=== PATIENT | male | born 1980 | race Caucasian/White ===

== ENCOUNTER → 2018-08-04 13:10 | Outpatient (CLI) | payer OTHER | END | disposition home or self-care (01) | LOC: D.RAD 13:10 | PROVIDERS: ATTEND Pain Medicine Interventional Pain Medicine | DX: M54.17 Radiculopathy, lumbosacral region (principal) ==

== ENCOUNTER → 2018-08-18 11:09 | Outpatient (CLI) | payer OTHER | END | disposition home or self-care (01) | LOC: D.HCCARDIO 11:09 | PROVIDERS: ATTEND Internal Medicine Cardiovascular Disease | DX: I25.10 Atherosclerotic heart disease of native coronary artery without angina pectoris (principal) ==

== ENCOUNTER → 2019-11-01 09:50 | Outpatient (CLI) | payer OTHER | END | disposition home or self-care (01) | LOC: D.HCCECHO 09:50 | PROVIDERS: ATTEND Internal Medicine Cardiovascular Disease | DX: I25.10 Atherosclerotic heart disease of native coronary artery without angina pectoris (principal) ==

== ENCOUNTER 2019-11-13 06:46 | Day surgery (SDC) | payer OTHER ==
[~2019-11-13] VITALS: Ht 175.3 cm; Wt 68.3 kg
--- NOTE | ~2019-11-13 | HEMODYNAMI ---
PATIENT:PATRIA ULRICH MEDICAL RECORD: [id number] : 84 LOCATION:[facility] ADMISSION DATE: 11/13/19 Generatedon:11/13/20199:31 Patient name: PATRIA ULRICH Patient #: [id number] : 1980 Date of study: 11/13/2019 Page: Of Hemodynamic Procedure Report Patient Data Patient Demographics Procedure consent was obtained First Name: PATRIA Gender: Male Last Name: MOJGAN : 1980 Patient #: [id number] Age: 39 year(s) Race: SSN: [id number] Additional ID: [id number] Contact details Address: [address] [place] [address] State: [place] City: [place] Zip code: [address] Past Medical History Allergies Allergen Reaction Date Comments Reported Other allergy 11/13/2019 Azithromycin Admission Admission Data Admission Date: 11/13/2019 Admission Time: 6:46 Arrival Date: 11/13/2019 Arrival Time: 0:00 Admit Source: Other Insurance Payor: Private health insurance [facility] #: [id number] Height (in.): 68.9 BSA: 1.83 (m2) Height (cm.): 175 BMI: 22.2 (kg/m2) Weight (lbs.): 149.92 Weight (kg.): 68 Lab Results Lab Result Date: 11/13/2019 Lab Result Time: 7:45 Biochemistry Name Units Result Min Max BUN mg/dl 11 --(-*--)-- 7 18 Creatinine mg/dl 1 --(--*-)-- 0.6 1.3 eGFR ml/min 90 --(*---)-- 90 120 NONAFRICAN CBC Name Units Result Min Max Hematocrit % 44.2 --(*---)-- 42 54 Hemoglobin g/dl 14.8 --(-*--)-- 13.5 17.5 Procedure Procedure Types Cath Procedure Diagnostic Procedure [facility] w/Coronaries Aortic Root Angiography Sedation Charges Moderate Sedation up to 45 minutes PCI Procedure Coronary Stent Coronary Stent Initial Coronary Stent Additional Hemochron ACT Test Procedure Description Procedure Date Procedure Date: 11/13/2019 Procedure Start Time: 8:42 Procedure End Time: 9:27 Procedure Staff Name Function Otis Ohara MD Performing Physician Luke Packer RT Monitor Hina Guillaume RT Scrub Ascencion Sainz RN Nurse Procedure Data Cath Procedure Fluoroscopy Diagnostic fluoroscopy Total fluoroscopy Time: 9.5 time: 9.5 min min Diagnostic fluoroscopy Total fluoroscopy dose: dose: 1378 mGy 1378 mGy Contrast Material Contrast Material Type Amount (ml) Isovue 300 154 Entry Location Entry Primary Successful Side Size Upsize Upsize Entry Closure Succes sful Closure Location (Fr) 1 (Fr) 2 (Fr) Remarks Device Remarks Femoral Right 5 Fr 6 Fr Exoseal artery Short Estimated blood loss: 10 ml Diagnostic catheters Device Type Used For End Catheter Placement MULTIPACK JL 4.0 5Fr Procedure catheter MULTIPACK 3DRC 5Fr Procedure catheter MULTIPACK Pigtail 5 Fr Procedure catheter Procedure Complications No complications Procedure Medications Medication Administration Route Dosage Oxygen etCO2 Nasal cannula 2 l/min Lidocaine 2% added to field 20 Heparin Flush Bag added to field 2 bags (1000units/500ml NS) 0.9% NaCl I.V. 100 ml/hr Versed I.V. 2 mg Fentanyl I.V. 100 mcg Versed I.V. 2 mg Fentanyl I.V. 100 mcg Heparin Bolus I.V. 6500 units Nitroglycerin IC/IA I.C. 50 mcg Versed I.V. 1 mg Versed I.V. 1 mg Plavix P.O. 75 mg Hemodynamics Rest BSA: 1.83 (m2) HGB: 14.8 (g/dl) O2 Consumption: Estimated: 221.88 (ml/min) O2 Co nsumption indexed: Estimated:121.25 (ml/min/m) Heart Rate: 65 (bpm) Pressure Samples Time Site Value (mmHg) Purpose Heart Use Rate(bpm) 8:50 LV 86/-4,8 Snapshot 63 Gradients Valve Time Site Site Mean SEP/DFP Peak To Heart Use 1 2 (mmHg) (sec/min) Peak Rate (mmHg) (bpm) Aortic 8:52 LV AO 63 Snapshots Pre Cath Intra NCS Post Cath Vital Signs Time Heart Resp SPO2 etCO2 NIBP (mmHg) Rhythm Pain Sedation Rate (ipm) (%) (mmHg) Status Level (bpm) 8:23:27 66 14 100 0 139/86(114) NSR 0 (11) 10(A) , No pain 8:27:43 71 19 100 33.6 115/79(94) NSR 0 (11) 10(A) , No pain 8:31:53 67 21 100 34.3 122/69(91) NSR 0 (11) 10(A) , No pain 8:36:05 64 20 98 37.3 109/67(81) NSR 0 (11) 10(A) , No pain 8:40:13 58 15 95 39.6 102/64(77) NSR 0 (11) 10(A) , No pain 8:44:21 59 15 95 41.9 96/56(71) NSR 0 (11) 10(A) , No pain 8:48:29 61 15 94 42.6 93/50(72) NSR 0 (11) 10(A) , No pain 8:52:32 62 16 95 41.8 92/54(67) NSR 0 (11) 10(A) , No pain 8:56:38 64 17 93 41.8 91/48(68) NSR 0 (11) 10(A) , No pain 9:00:42 63 17 93 41.1 87/49(65) NSR 0 (11) 10(A) , No pain 9:04:48 69 18 93 41.1 86/44(65) NSR 0 (11) 10(A) , No pain 9:08:49 68 19 94 39.6 87/49(63) NSR 0 (11) 10(A) , No pain 9:13:38 78 11 100 35.8 110/66(89) NSR 0 (11) 10(A) , No pain 9:17:44 72 12 100 36.6 108/66(91) NSR 0 (11) 10(A) , No pain 9:21:50 75 16 100 40.4 104/65(85) NSR 0 (11) 10(A) , No pain 9:25:53 64 18 99 32.1 108/61(91) NSR 0 (11) 10(A) , No pain Medications Time Medication Route Dose Verified Delivered Reason Notes Effectiveness by by 8:26:46 Oxygen etCO2 2 Otis Buffie used for Nasal l/min Florentino Sainz RN procedure cannula 8:26:53 Lidocaine 2% added 20ml Otis Otis for local to vial Florentino Ohara MD anesthetic field 8:27:01 Heparin Flush added 2 Otis Otis for local Bag to bags Florentino Ohara MD anesthetic (1000units/500ml field NS) 8:27:09 0.9% NaCl I.V. 100 Otis Buffie Per physician ml/hr Florentino Sainz RN 8:35:54 Versed I.V. 2 mg Otis Buffie for sedation Florentino Sainz RN 8:36:04 Fentanyl I.V. 100 Otis Buffie for sedation mcg Florentino Sainz RN 8:40:31 Versed I.V. 2 mg Otis Buffie for sedation Florentino Sainz RN 8:40:34 Fentanyl I.V. 100 Otis Buffie for sedation mcg Florentino Sainz RN 8:50:24 Versed I.V. 1 mg Otis Otis for sedation Florentino Ohara MD 9:00:04 Heparin Bolus I.V. 6500 Otis Buffie for verifi ed units Florentino Sainz RN anticoagulation with dr ohara 9:13:47 Nitroglycerin I.C. 50 Otis Otis for IC/IA mcg Florentino Ohara MD vasodilation 9:20:25 Versed I.V. 1 mg Otis Otis for sedation Florentino Ohara MD 9:27:56 Plavix P.O. 75 mg Otis Buffie for Florentino Sainz RN antiplatelet therapy Procedure Log Time Note 7:48:40 Informed consent obtained and on chart 7:49:58 Admit Source: Other 7:50:00 Arrival Date: 11/13/2019 12:00:00 AM 8:00:11 Ascencion Sainz RN sent for patient. Start room use. 8:12:13 Patient Weight : 149.92 lbs 8:12:23 Patient Height : 68.9 inches 8:12:36 Insurance Payor : Private health insurance 8:16:50 ACC Patient presents with Stable Angina CCS Anginal Class 2--Slight limitation of ordinary activity. 8:16:53 Procedure Status Elective Heart Cath (OP). 8:17:16 Time tracking: Regular hours (M-F 7:00 - 5:00) 8:17:19 Plan of Care:Hemodynamics will remain stable., Cardiac rhythm will remain stable., Comfort level will be maintained., Respiratory function will remain adequate., Patient/ family verbilizes understanding of procedure., Procedure tolerated without complication., Recovers from procedure without complications.. 8:17:22 Patient received from Pre/Post Procedure Room to CCL 1 Alert and oriented. Tansferred to table in Supine position. 8:17:23 Warm blankets applied, and lola hugger turned on for patient comfort. 8:17:23 Correct patient and procedure confirmed by team. 8:17:31 H&P Date Dictated: 10/16/2019 Within 30 days and on chart., H&P Addendum completed by physician on day of procedure. (MUST COMPLETE FOR ALL OUTPATIENTS). 8:17:32 Pre-procedure instructions explained to patient. 8:17:33 Pre-op teaching completed and patient verbalized understanding. 8:17:34 Family in waiting room. 8:17:35 Patient NPO since Midnight. 8:17:50 Patient allergic to Other allergyAzithromycin 8:17:56 Is the patient allergic to Iodine/contrast media? No. 8:22:14 ECG and BP/O2 sat monitors applied to patient. 8:22:15 Vital chart was started 8:22:16 Baseline sample Acquired. 8:22:18 Rhythm: sinus rhythm 8:22:19 Full Disclosure recording started 8:22:22 Is patient on blood thinner?Yes 8:22:24 ACC The patient was administered the following blood thiners within the last 24 hours: ACCAspirin, ACCPlavix 8:22:27 Patient diabetic? No. 8:22:56 Previous problem with sedation/anesthesia? No ? 8:22:57 Snore? No 8:22:58 Sleep apnea? No 8:22:59 Deviated septum? No 8:23:00 Opens mouth fully? Yes 8:23:00 Sticks out tongue? Yes 8:23:03 Airway obstruction? No ? 8:23:15 Dentures? Yes in tight 8:23:20 Pre procedure: right dorsailis pedis pulse 2+ Normal; easily identifiable; not easily obliterated 8:23:22 Patient pain scale 0/10 ?. 8:23:29 IV patent on arrival in right forearm with 0.9% NaCl at [facility]. 8::56 Lab Result : Hematocrit 44.2 % 8::56 Lab Result : Hemoglobin 14.8 g/dl 8::23 Lab results completed and on chart. 8:26:46 Oxygen 2 l/min etCO2 Nasal cannula was administered by Ascencion Sainz RN; used for procedure; Verbal order read back and verified. 8::53 Lidocaine 2% 20ml vial added to field was administered by Otis Ohara MD; for local anesthetic; Verbal order read back and verified. 8:27:01 Heparin Flush Bag (1000units/500ml NS) 2 bags added to field was administered by Otis Ohara MD; for local anesthetic; Verbal order read back and verified. 8:27:09 0.9% NaCl 100 ml/hr I.V. was administered by Ascencion Sainz RN; Per physician; Verbal order read back and verified. 8:31:08 Stress Test: yes; abnormal fixed inferior and lateral 8:31:50 Right groin area was prepped with chlora-prep and draped in sterile fashion 8:31:51 Alarms reviewed by R. N. 8:31:52 Sharps counted by scrub and verified by R.N. 8:31:54 Use device set Femoral Dx 8:31:55 ACIST Syringe (01208) opened to sterile field. 8:31:55 Bag Decanter (2002) opened to sterile field. 8:31:55 Medline Cath Pack ([id number]) opened to sterile field. 8:31:57 ACIST Hand Control (00181) opened to sterile field. 8:31:57 ACIST Manifold (22180) opened to sterile field. 8:31:58 DIAGNOSTIC Multipack 5Fr catheter set (JD3579) opened to sterile field. 8:31:58 Tegaderm 4 x 4 (1626W) opened to sterile field. 8:32:01 SHEATH 5FR [place] (FRU337) opened to sterile field. 8:32:01 ELLIOTTALD Guide Wire (223-258) opened to sterile field. 8:35:35 Physician arrived 8:35:35 --------ALL STOP TIME OUT------ 8:35:35 Final Timeout: patient, procedure, and site verified with staff and physician. All members of the team are in agreement. 8:35:37 Right groin site verified by team. 8:35:40 Fire Safety Assessment: A--An alcohol-based skin anteseptic being used preoperatively., C--Open oxygen or nitrous oxide is being used., D--An ESU, laser, or fiber-optic light is being used. 8:35:44 Physical assessment completed. ASA score P 2 - A patient with mild systemic disease as per Otis Ohara MD. 8:35:47 1) 90+ Normal kidney functon but urine findings or structural abnormalities or genetic trait point to kidney disease. 8:35:49 Maximum allowable contrast dose (3.7 X eGFR X 0.75)250 ml. 8:35:53 Sedation plan: IV Moderate Sedation Medication:Versed, Fentanyl 8:35:54 Versed 2 mg I.V. was administered by Ascencion Sainz RN; for sedation; Verbal order read back and verified. 8:36:04 Fentanyl 100 mcg I.V. was administered by Ascencion Sainz RN; for sedation; Verbal order read back and verified. 8:40:31 Versed 2 mg I.V. was administered by Ascencion Sainz RN; for sedation; Verbal order read back and verified. 8:40:34 Fentanyl 100 mcg I.V. was administered by Ascencion Sainz RN; for sedation; Verbal order read back and verified. 8:42:24 Procedure started. 8:42:27 Local anesthetic to right femoral artery with Lidocaine 2% by Otis Ohara MD.INITIAL ACCESS ONLY 8:42:33 A 5 Fr sheath was inserted into the Right Femoral artery 8:43:23 Zero performed for pressure channel P1 8:44:39 A MULTIPACK JL 4.0 5Fr catheter was advanced over the wire and used for Procedure. 8:45:13 LCA angiography performed. 8:46:57 Catheter exchanged over wire. 8:48:28 A MULTIPACK 3DRC 5Fr catheter was advanced over the wire and used for Procedure. 8:49:07 RCA angiography performed. 8:49:15 Catheter exchanged over wire. 8:49:18 A MULTIPACK Pigtail 5 Fr catheter was advanced over the wire and used for Procedure. 8:50:24 Versed 1 mg I.V. was administered by Otis Ohara MD; for sedation; Verbal order read back and verified. 8:50:54 LV gram done using WILSON 8:50:57 Injector settings: Ml/sec: 10, Volume: 20, 8:50:58 LV hemodynamics recorded. 8:53:08 Aortic Root visualized 8:53:19 EF : 40 % 8:53:58 Catheter removed. 8:56:40 SHEATH 6FR [place] (ERR284) opened to sterile field. 8:56:40 INFLATOR Merit BasixCompak (PC7063) opened to sterile field. 8:56:44 TUBING High Pressure Extension Tubing (Florentino) ([id number]) opened to sterile field. 8:57:53 BMW 300cm [place] 2 J wire ([id number]) opened to sterile field. 8:57:59 GUIDE 6FR JR 4.0 catheter (KR5JF69) opened to sterile field. 8:58:17 Sheath upsized to a 6 Fr Short. 8:58:26 ACC Pre-intervention ANYELI Flow is 3. 8:58:41 Pre PCI Site: [place] PDA has 80% stenosis. 8:58:51 6 Fr JR 4 guide catheter was inserted over the wire 8:58:55 BMW wire advanced. 9:00:04 Heparin Bolus 6500 units I.V. was administered by Ascencion Sainz RN; for anticoagulation; verified with dr ohara Verbal order read back and verified. 9:00:33 Wire advanced across lesion. 9:07:25 Place stent Inflation Number: 1 A MARELY OTW 2.25 x 26 stent ([id number]) was prepped and advanced across the R PDA 80. The stent was deployed at 13 SACHA for 0:10 (min:sec) 0. 9:09:20 ACC Post-intervention NAYELI Flow is 3. 9:09:27 Post PCI Site: [place] PDA has 0% stenosis. 9:10:06 Inflation number: 1 The stent balloon was then re-inflated across the Dist RCA to 12 SACHA for 0:10 (min:sec) . 9:13:47 Nitroglycerin IC/IA 50 mcg I.C. was administered by Otis Ohara MD; for vasodilation; Verbal order read back and verified. 9:13:51 Stent catheter was removed intact over wire. 9:18:24 Place stent Inflation Number: 2 A MARELY OTW 2.25 x 15 stent ([id number]) was prepped and advanced across the Dist RCA . The stent was deployed at 11 SACHA for 0:10 (min:sec) . 9::53 Stent catheter was removed intact over wire. 9::55 Wire removed. 9::55 Guide catheter removed. 9:20:12 Post PCI Site: [place] dRCA has 0% stenosis. 9:20:15 ACC Post-intervention NAYELI Flow is 3. 9:20:21 EXOSEAL 6Fr (EX600) opened to sterile field. 9:20:25 Versed 1 mg I.V. was administered by Otis Ohara MD; for sedation; Verbal order read back and verified. 9:20:28 Sheath removed intact; hemostasis achieved with Exoseal to the Right Femoral artery. 9:20:29 Procedure ended.(Physican Out) 9::24 Fluoroscopy time 09.50 minutes. 9::33 Flurop Dose total: 1378 9::33 Fluoroscopy dose: 1378 mGy 9::42 Dose Area Product 78000 mGy/cm. 9::50 Contrast amount:Isovue 300 154ml. 9::53 Maximum allowable dose exceeded? No. 9::53 Sharps counted by scrub and verified by R.N. 9:24:49 Lab Result : BUN 11 mg/dl 9::49 Lab Result : Creatinine 1 mg/dl 9:24:49 Lab Result : eGFR NONAFRICAN 90 ml/min 9:25:25 Insertion/operative site no bleeding no hematoma. 9:25:27 Post-op/insertion site Right Femoral artery dressed using a 4 x 4 and Tegaderm. 9:25:30 Post right femoral artery:stable, soft, clean and dry 9:25:31 Post Procedure Pulses reassessed and unchanged 9::33 Post-procedure physical assessment completed. ASA score P 2 - A patient with mild systemic disease as per Otis Ohara MD. 9:25:35 Post procedure rhythm: unchanged. 9:25:37 Estimated blood loss: 10 ml 9:25:38 Post procedure instruction explained to patient.Patient verbalizes understanding. 9::39 Patient needs reinforcement of post procedure teaching. 9::28 Procedure type changed to Cath procedure, Diagnostic procedure, LHC, [facility] w/Coronaries, Aortic Root Angiography, Sedation Charges, Moderate Sedation up to 45 minutes, PCI procedure, Coronary Stent, Coronary Stent Initial, Coronary Stent Additional, Hemochron ACT Test 9::47 Procedure and supply charges have been captured, reviewed, submitted and are correct. 9:26:49 Procedure Complication : No complications 9::51 Vital chart was stopped 9::54 [facility] Findings: MVD- PCI performed (see procedure note) 9::56 Operative report dictated upon procedure completion. 9::56 See physician's report for complete and final results. 9::30 Report given to Pre/Post Procedure Room. 9::33 Patient transfered to Pre/Post Procedure Room with Stretcher. 9::34 Procedure ended. 9::34 Full Disclosure recording stopped 9::43 ACC-PCI Only Patient was given prescriptions, or instructed by Otis Ohara MD to start/continue the following medications upon discharge: Aspirin, Plavix 9::56 Plavix 75 mg P.O. was administered by Ascencion Sainz RN; for antiplatelet therapy; Verbal order read back and verified. 9:28:10 ACT drawn and resulted at 359 seconds. (normal therapeutic range 180-240 seconds). 9:29:29 End room use (Document Last) 9:29:41 End room use (Document Last) 9:30:00 Luke Packer RT(R) was relieved by Ascencion Sainz RN as monitoring person 9:30:22 Ascencion Sainz RN was relieved by Luke Packer RT(R) as monitoring person 9:30:22 End room use (Document Last) Intervention Summary Intervention Notes Time ActionType Lesion and Equipment Action# Pressure Duration Attributes Used 9:07:25 Place stent R PDA MARELY OTW 2.25 1 13 00:10 x 26 stent ([id number]) 9:10:06 Reinflate Dist RCA MARELY OTW 2.25 1 12 00:10 stent x 26 stent balloon ([id number]) 9:18:24 Place stent Dist RCA MARELY OTW 2.25 2 11 00:10 x 15 stent ([id number]) Device Usage Item Name Manufacture Quantity Catalog Hospital Part Current Minim al Lot# / Number Charge Number Stock Stock Serial# Code ACIST Syringe Acist 1 08825 125855 576529 277170 20 (91283) Medical Systems Inc Bag Decanter Microtek 1 907370 99162 358205 5 () Medical Inc. Medline Cath Medline 1 [id number] 540272 43961 605614 5 Pack ([id number]) ACIST Hand Acist 1 24353 259014 639325 996070 5 Control Medical (48966) Systems Inc ACIST Acist 1 74473 038467 750199 838516 5 Manifold Medical (52869) Systems Inc DIAGNOSTIC Cardinal 1 US0225 689518 26648 933278 30 Multipack 5Fr Health catheter set (OJ6959) Tegaderm 4 x 3M 1 1626W 313384 829790 665401 5 4 (1626W) SHEATH 5FR Terumo 1 HPU450 056990 175218 652643 5 [place] (HIX327) EMERALD Guide Cardinal 1 502-455 726794 654051 762295 5 Wire Health (502-455) MULTIPACK JL Cardinal 1 844576 5 4.0 5Fr Health catheter MULTIPACK Cardinal 1 975205 5 3DRC 5Fr Health catheter MULTIPACK Cardinal 1 687908 5 Pigtail 5 Fr Health catheter SHEATH 6FR Terumo 1 SMV739 284464 719401 380800 40 [place] (JOW654) INFLATOR Merit 1 LZ6448 402147 369346 866878 15 Merit Medical BasixCompak (TF4387) TUBING High Merit 1 [id number] 641620 85667 632440 10 Pressure Medical Extension Tubing (Ohara) (FU0913Q) GUIDE 6FR JR Medtronic 1 FY4ZN96 785762 10591 964134 1 4.0 catheter (HR1WV41) BMW 300cm Gonzalez 1 [id number] 126442 832914 341063 5 [place] 2 J Vascular wire (9682257G) MARELY OTW 2.25 Medtronic 1 [id number] 685769 37436 929542 5 [id number] x 26 stent ([id number]) MARELY OTW 2.25 Medtronic 1 [id number] 582971 19761 815589 5 [id number] x 15 stent ([id number]) EXOSEAL 6Fr Cardinal 1 EX600 908477 164686 240892 10 (EX600) Health Signature Audit Helper Stage Time Signature Unsigned Intra-Procedure 11/13/2019 Luke Packer 9:29:42 AM RT(R) Intra-Procedure 11/13/2019 Ascencion Sainz RN 9:30:14 AM Intra-Procedure 11/13/2019 Otis Ohara MD 9:31:36 AM Signatures Performing Physician : Signature : Otis Ohara MD Date : Time : Monitor : Luke Packer RT Signature : Date : Time : Nurse : Ascencion Sainz RN Signature : Date : Time : [address] [place] [address]
[2019-11-13] MEDS ORDERED: TOPROL XL100 MG PO (07:32)
[2019-11-13] MEDS ORDERED: LISINOPRIL10 MG PO (07:33)
[2019-11-13] MEDS ORDERED: PLAVIX75 MG PO (07:33)
[2019-11-13] MEDS ORDERED: DIGOXIN250 MCG PO (07:34)
[2019-11-13] MEDS ORDERED: LIPITOR40 MG PO (07:34)
[2019-11-13 07:48] VITALS: BP 137/87; Ht 175.3 cm; Wt 68.3 kg
[2019-11-13 07:59] LABS: BASOPHILS 0.2 % (0-2); HEMATOCRIT 44.2 % (42.0-54.0); HEMOGLOBIN 14.8 g/dL (13.5-17.5); IMMATURE GRANULOCYTES 2.3 % (0-5); LYMPHOCYTES 25.4 % (15-50); MCH 34.1 pg (26.0-34.0); MCHC 33.5 g/dL (31.0-37.0); MCV 101.8 fL (80.0-100.0); MEAN PLATELET VOLUME 9.8 fL (7.4-10.4); MONOCYTES 6.9 % (2-11); NEUTROPHILS 56.2 % (40-80); PLATELET COUNT 268 10x3/uL (130-400); RBC 4.34 10x6/uL (4.20-6.10); RDW 12.7 % (11.5-14.5); WBC 9.1 10x3/uL (4.8-10.8)
[2019-11-13 08:26] LABS: ALT (SGPT) 60 U/L (10-68); CALCIUM 8.8 mg/dL (8.5-10.1); CHLORIDE - SERUM 105 mmol/L (98-107); CHOL - HDL RATIO 3.9 ratio (2.3-4.9); CHOLESTEROL, TOTAL 150 mg/dL (0-200); GLUCOSE 110 mg/dL (74-106); HDL CHOLESTEROL 39 mg/dL (32-96); LDL CHOLESTEROL 91 mg/dL (0-100); LDL-HDL RATIO 2.3 ratio (1.5-3.5); TRIGLYCERIDE 104 mg/dL (30-200); UREA NITROGEN 11 mg/dL (7-18); eGFR NON AFRICAN AMERICAN 89 mL/min (90-120)
[2019-11-13 09:03] LABS: CALC OSMOLALITY 280 mosm/kg (275-300); POTASSIUM - SERUM 3.4 mmol/L (3.5-5.1); SODIUM 141 mmol/L (136-145)
--- NOTE | 2019-11-13 09:35 | NUR ---
PT REC'D TO ROOM 9 VIA STRETCHER FROM PATIENT SERVICES SPECIALIST. MONITORS ESTAB. FAMILY FRIEND AT BS. SEE MAILROOM PERSONNEL. ALARMS ON AND C/L IN REACH.
--- NOTE | 2019-11-13 09:50 | NUR ---
R GROIN SITE SOFT, NO S/S BLEEDING OR HEMATOMA. R LEG/FOOT WARM WITH PALP PULSES. VSS. PT DENIES PAIN OR NEEDS.
--- NOTE | 2019-11-13 10:20 | NUR ---
R GROIN SITE C/D/I, NO S/S BLEEDING OR SWELLING. PT RESTING QUIETLY, VSS. R LEG/FOOT WARM WITH PALP PULSES. ALARMS ON AND C/L IN REACH.
--- NOTE | 2019-11-13 10:35 | NUR ---
R GROIN SITE C/D/I, NO S/S BLEEDING OR SWELLING. PULSES PALP, VSS. PT TOLERATING SIPS OF WATER. DENIES OTHER NEEDS.
--- NOTE | 2019-11-13 10:58 | NUR ---
DR. WOODS AT BS, UPDATE GIVEN AND QUESTIONS ANSWERED. R GROIN SITE SOFT, NO S/S BLEEDING OR HEMATOMA.
[2019-11-13] MEDS ORDERED: BAYER CHEWABLE81 MG PO (11:04)
--- NOTE | 2019-11-13 11:05 | NUR ---
R GROIN SITE SOFT, C/D/I. NO S/S BLEEDING OR HEMATOMA. PULSES PALP. PT GIVEN URINAL PER REQUEST.
--- NOTE | 2019-11-13 11:35 | NUR ---
PT RESTING QUIETLY. R GROIN SITE C/D/I, NO S/S BLEEDING OR HEMATOMA. PULSES PALP. ALARMS ON AND C/L IN REACH.
--- NOTE | 2019-11-13 12:00 | NUR ---
R GROIN SITE C/D/I, NO S/S BLEEDING OR HEMATOMA. PT VOIDED 400 ML CLEAR, YELLOW URINE. VSS. C/L IN REACH.
--- NOTE | 2019-11-13 12:30 | NUR ---
R GROIN SITE C/D/I, NO S/S BLEEDING OR HEMATOMA. HOB SLOWLY ELEVATED. SANDWICH TRAY AND SODA PROVIDED. VSS. PT DENIES NEEDS.
--- NOTE | 2019-11-13 13:10 | NUR ---
ALL DISCHARGE INSTRUCTIONS REVIEWED WITH PT - INCLUDING RESTRICTIONS, MEDS (MONITORING B/P AND HR), AND F/U APPT. PT VERBALIZES UNDERSTANDING.
--- NOTE | 2019-11-13 13:21 | NUR ---
R GROIN SITE SOFT, NO S/S BLEEDING OR HEMATOMA. PIV D/C'D INTACT, DSG APPLIED. PT ALLOWED UP TO GET DRESSED AND GO TO BR INDEPENDENTLY.
--- NOTE | 2019-11-13 13:26 | NUR ---
PT D/C'D VIA WC TO PRIVATE VEHICLE. PT HAS ALL PAPERWORK AND BELONGINGS.
== END 2019-11-13 13:27 | disposition home or self-care (01) ==
LOC: D.CATH 06:46
PROVIDERS: ATTEND Internal Medicine Cardiovascular Disease
DX: I25.119 Atherosclerotic heart disease of native coronary artery with unspecified angina pectoris (principal); R94.39 Abnormal result of other cardiovascular function study; R06.00 Dyspnea, unspecified; I10 Essential (primary) hypertension; R53.83 Other fatigue

== ENCOUNTER 2020-05-09 15:00 | Emergency (ER) | payer OTHER ==
[~2020-05-09] VITALS: Ht 175.3 cm; Wt 67.3 kg
[~2020-05-09 15:00] MED LIST: BAYER CHEWABLE81 MG PO; CELEXA10 MG PO; DIGOXIN250 MCG PO; ENTRESTO 24 MG1 EACH PO; LEVOFLOXACIN500 MG PO; LIPITOR40 MG PO; LISINOPRIL10 MG PO; NEURONTIN800 MG PO; NORCO 7.5-3251 EACH GT; OXYCONTIN10 MG PO; PLAVIX75 MG PO; TOPROL XL100 MG PO; TYLENOL W/CODEI1 TAB PO; ZOFRAN ODT4 MG/UDTAB PO
[2020-05-09 15:25] VITALS: Ht 175.3 cm; Wt 67.3 kg
[2020-05-09] MEDS ORDERED: LISINOPRIL10 MG PO (15:27)
[2020-05-09] MEDS ORDERED: STERAPRED 5MG 65 M1 PO (16:18)
[2020-05-09] MEDS ORDERED: BACLOFEN20 M1 PO (16:18)
[2020-05-09 16:59] VITALS: BP 144/77
== END 2020-05-09 17:02 | disposition home or self-care (01) ==
LOC: D.ER 15:00
DX: M79.605 Pain in left leg (principal); G62.9 Polyneuropathy, unspecified; I10 Essential (primary) hypertension; I25.2 Old myocardial infarction; Z72.0 Tobacco use

== ENCOUNTER 2020-08-10 00:49 | Inpatient (IN) | payer OTHER ==
[~2020-08-10] VITALS: Ht 175.3 cm; Wt 60.8 kg
[2020-08-10] VITALS (23 sets, daily range): BP systolic 91–131; BP diastolic 56–79; Ht 175.3 cm; Wt 60.8 kg
--- NOTE | ~2020-08-10 | OP ---
PATIENT NAME: PATRIA ULRICH MEDICAL RECORD: [id number] :84 LOCATION:D[facility] D.2302 ADMISSION DATE:08/10/20 SURGEON: BEVERLEY BAUER MD DATE OF OPERATION: 08/11/2020 PROCEDURE PERFORMED: Left heart cath, selective coronary angiography, right femoral artery approach. CATHETERS: A 5-Sami sheath, 5/4 left and right Tera, 5/4 pig. The procedure was well tolerated, the patient returned to the garcia, sheath removed, ExoSeal device placed. FINDINGS: Left ventriculography in 30-degree WILSON view shows basically inferior hypo to akinesis particularly on the inferior base down to the mid inferior wall. Overall function reduced at 40% to 45%. CORONARY ANATOMY: Left main: Left main is free of disease. LAD: Has aneurysmal dilatations in its mid portion as documented previously. 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 Circumflex: Smallish vessel, free of disease. Right coronary artery: Previous stenting is widely patent. IMPRESSION: No evidence for restenosis. Inferior scar as described above. The patient previously started on sotalol. We will consider long-term anti-platelets given the aneurysmal dilatation. QRS duration not prolonged. However, we will consider referral to EP for ICD placement. TRANSINT:[id number] Voice Confirmation ID: [id number] DOCUMENT ID: [id number] BEVERLEY BAUER MD CC: [id number] DICTATION DATE: 08/11/20 1040 RENTAL COORDINATOR: 08/11/20 1158 DIS IN 08/11/20 [facility] [address] [place] [address]
--- NOTE | ~2020-08-10 | EC ---
PATIENT:PATRIA ULRICH DATE OF SERVICE: 08/10/20 SEX: M MEDICAL RECORD: [id number] DATE OF : [birth year] LOCATION:[facility] AGE OF PATIENT: 40 ADMISSION DATE: 08/10/20 REFERRING PHYSICIAN: INTERPRETING PHYSICIAN: BEVERLEY BAUER MD ECHOCARDIOGRAM REPORT ECHO CHARGES 4 ECHO COMPLETE Date: 08/10/20 CLINICAL DIAGNOSIS: CAD/CARDIOMYOPATHY ECHOCARDIOGRAPHIC MEASUREMENTS (adult normal given) AC root (d.<3.7cm) 3.4 cm LV Septum d (<1.2 cm> 1.4 cm Valve Excursion 1.6 cm LV Septum (systole) 1.6 cm Left Atria (s.<4.0cm> 4.1 cm LVPW d(<1.2cm) 1.3 cm RV (d.<2.3cm) 4.6 cm LVPW (sytole) 1.4 cm LV diastole(<5.6CM) 6.3 cm MV E-F(>70mm/sec) cm LV systole 4.9 cm LVOT Diameter 2.4 cm MV exc.(>10mm) 2.5 cm Est.ejection fraction (50-75%) % DOPPLER: LVIT cm/sec A 38.0 cm/sec E 82.0 cm/sec LA cm/sec RVSP 33 mmHg LVOT 78 cm/sec AOP1/2T m/s Asc. Ao 99 cm/sec RVOT 51 cm/sec RA cm/sec PA 83 cm/sec AV Gradient Peak 3.92 mmHg AV Mean 2.20 mmHg AV Area 4.1 cm MV Gradient Peak 2.21 mmHg MV Mean 0.76 mmHg MV Area cm COMMENTS: Editor Sound: 2 EARL MCCARTNEY Pipelaying Fitter: 3 Dr. Molina TAPE# PACS Pericardial Effusion N DATE OF SERVICE: Adequate 2D, color flow imaging, spectral Doppler, and M-Mode. Mild LVH. LV internal dimensions are dilated. LV shows a marked hypokinesis of the inferior wall. Overall LV function reduced at 40% to 45%. Aortic valve is tricuspid. No evidence of stenosis by Doppler interrogation. Left atrium is mildly dilated at 4.1 cm. Mitral valve shows no prolapse. Mild MR. Right-sided chambers are grossly normal. Mild TR. ECHOCARDIOGRAM REPORT [id number] PATRIA ULRICH O TRANSINT:[id number] Voice Confirmation ID: [id number] DOCUMENT ID: [id number] BEVERLEY BAUER MD CC: [id number] DICTATION DATE: 08/11/20 1041 SUEDING MACHINE OPERATOR: 08/11/20 1200 ADM IN [id number] [place] [address]
--- NOTE | ~2020-08-10 | HEMODYNAMI ---
PATIENT:PATRIA ULRICH MEDICAL RECORD: [id number] : 84 [id number] ADMISSION DATE: 08/10/20 Generatedon:110:24 Patient name: PARTIA ULRICH Patient #: [id number] : 1980 Date of study: 08/11/2020 Page: Of Hemodynamic Procedure Report Patient Data Patient Demographics Procedure consent was obtained First Name: PATRIA Gender: Male Last Name: MOJGAN : 1980 Middle Initial: JACINTA Age: 40 year(s) JOHNNY Race: Patient #: [id number] SSN: [id number] Additional ID: [id number] Contact details [address]: [address] [place] [address] State: [place] City: [place] Zip code: [address] Past Medical History History of disease Date Diagnosis Comments CAD Allergies Allergen Reaction Date Comments Reported Other allergy 11/13/2019 Azithromycin Other allergy 08/11/2020 AZITHROMYCIN Admission Admission Data Admission Date: 08/10/2020 Admission Time: 10:17 Arrival Date: 08/11/2020 Arrival Time: 0:00 Admit Source: Other Room #: D.2302 Height (in.): 69 BSA: 1.74 (m2) Height (cm.): 175.26 BMI: 19.78 (kg/m2) Weight (lbs.): 133.98 Weight (kg.): 60.77 Lab Results Lab Result Date: 08/11/2020 Lab Result Time: 0:00 Biochemistry Name Units Result Min Max BUN mg/dl 12 --(-*--)-- 7 18 CK-MB ng/ml 12.5 --(----)-* 0 3.6 Creatinine mg/dl 0.9 --(-*--)-- 0.6 1.3 eGFR ml/min 90 --(*---)-- 90 120 NONAFRICAN Troponin l ng/ml 3.228 --(----)-* 0 0.06 CBC Name Units Result Min Max Hematocrit % 42.8 --(*---)-- 42 54 Hemoglobin g/dl 14.3 --(*---)-- 13.5 17.5 Procedure Procedure Types Cath Procedure Diagnostic Procedure [facility] w/Coronaries Procedure Description Procedure Date Procedure Date: 08/11/2020 Procedure Start Time: 10:11 Procedure End Time: 10:21 Procedure Staff Name Function Uriel Chau MD Performing Physician Nicole Balderas RT Monitor Ascencion Sainz RN Nurse Mark Anthony Vigil RN Nurse Lisa Kelly RT Scrub Procedure Data Cath Procedure Fluoroscopy Diagnostic fluoroscopy Total fluoroscopy Time: 1.2 time: 1.2 min min Diagnostic fluoroscopy Total fluoroscopy dose: 310 dose: 310 mGy mGy Contrast Material Contrast Material Type Amount (ml) Isovue 300 61 Entry Location Entry Primary Successful Side Size Upsize Upsize Entry Closure Succes sful Closure Location (Fr) 1 (Fr) 2 (Fr) Remarks Device Remarks Femoral Right 5 Fr Exoseal artery Estimated blood loss: 5 ml Diagnostic catheters Device Type Used For End Catheter Placement MULTIPACK JL 4.0 5Fr Procedure catheter MULTIPACK 3DRC 5Fr Procedure catheter MULTIPACK Pigtail 5 Fr Procedure catheter Procedure Complications No complications Procedure Medications Medication Administration Route Dosage Oxygen etCO2 Nasal cannula 2 l/min Lidocaine 2% added to field 20 Heparin Flush Bag added to field 2 bags (1000units/500ml NS) 0.9% NaCl I.V. 100 ml/hr Versed I.V. 1 mg Fentanyl I.V. 50 mcg Versed I.V. 0.5 mg Fentanyl I.V. 25 mcg Versed I.V. 0.5 mg Fentanyl I.V. 25 mcg Hemodynamics Rest BSA: 1.74 (m2) HGB: 14.3 (g/dl) O2 Consumption: Estimated: 207.98 (ml/min) O2 Co nsumption indexed: Estimated:119.53 (ml/min/m) Heart Rate: 61 (bpm) Pressure Samples Time Site Value (mmHg) Purpose Heart Use Rate(bpm) 10:16 LV 117/11,14 Snapshot 63 10:16 LV 117/11,14 Snapshot 64 10:17 AO 107/73(91) Pullback 69 10:17 LV 103/24,33 Pullback 69 Gradients Valve Time Site 1 Site 2 Mean SEP/DFP Peak To Heart Use (mmHg) (sec/min) Peak Rate (mmHg) (bpm) Aortic 10:17 LV AO 0 69 103/24,33 107/73(91) Calculations Valve P-P Mean Valve Index Valve Source Name Gradient Area Flow (cm2) Aortic 0 0 Snapshots Pre Cath Intra NCS Post Cath Vital Signs Time Heart Resp SPO2 etCO2 NIBP (mmHg) Rhythm Pain Sedation Rate (ipm) (%) (mmHg) Status Level (bpm) 9:58:44 57 12 100 30.2 128/66(105) NSR 0 (11) 10(A) , No pain 10:02:58 57 19 100 29.4 119/66(84) NSR 0 (11) 10(A) , No pain 10:07:14 54 18 94 28.7 115/58(74) NSR 0 (11) 10(A) , No pain 10:11:28 61 19 96 30.2 110/63(76) NSR 0 (11) 10(A) , No pain 10:15:42 58 20 94 30.9 109/57(79) NSR 0 (11) 10(A) , No pain 10:19:56 60 19 94 30.9 112/58(76) NSR 0 (11) 10(A) , No pain Medications Time Medication Route Dose Verified Delivered Reason Notes Eff ectiveness by by 9:58:43 Oxygen etCO2 2 Uriel Mark Anthony used for Nasal l/min [facility] A Vigil RN procedure cannula 9:58:51 Lidocaine 2% added 20ml Uriel Gomezory for local to vial [facility] anesthetic field MD LYNCH 9:58:58 Heparin Flush added 2 Uriel Uriel used for Bag to bags [facility] procedure (1000units/500ml field MD LYNCH NS) 9:59:08 0.9% NaCl I.V. 100 Uriel Mark Anthony Per ml/hr [facility] A Vigil RN physician 10:09:28 Versed I.V. 1 mg Uriel Mark Anthony for [facility] A Vigil RN sedation 10:09:36 Fentanyl I.V. 50 Uriel Mark Anthony for mcg [facility] A Vigil RN sedation 10:11:13 Versed I.V. 0.5 Uriel Mark Anthony for mg [facility] A Vigil RN sedation 10:11:18 Fentanyl I.V. 25 Uriel [facility] Miguel A Vigil RN sedation 10:13:57 Versed I.V. 0.[address] [facility] A Vigil RN sedation 10:14:00 Fentanyl I.V. 25 Uriel [facility] Miguel A Vigil RN sedation Procedure Log Time Note 9:26:29 Informed consent obtained and on chart 9:27:36 Lab Result : BUN 12 mg/dl 9::36 Lab Result : eGFR NONAFRICAN 90 ml/min 9::36 Lab Result : Hemoglobin 14.3 g/dl 9::36 Lab Result : Troponin l 3.228 ng/ml 9::36 Lab Result : Creatinine 0.9 mg/dl 9::36 Lab Result : CK-MB 12.5 ng/ml 9::36 Lab Result : Hematocrit 42.8 % 9:27:50 Arrival Date: 08/11/2020 12:00:00 AM 9:27:51 Admit Source: Other 9:27:54 Patient Height : 69 inches 9:27:58 Patient Weight : 133.98 lbs 9:28:05 ACC Patient presents with Unstable Angina CCS Anginal Class 2--Slight limitation of ordinary activity. 9:28:07 Procedure Status Urgent Heart Cath (IP). 9:28:09 Time tracking: Regular hours (M-F 7:00 - 5:00) 9:28:13 Plan of Care:Hemodynamics will remain stable., Cardiac rhythm will remain stable., Comfort level will be maintained., Respiratory function will remain adequate., Patient/ family verbilizes understanding of procedure., Procedure tolerated without complication., Recovers from procedure without complications.. 9:34:03 Ascencion Sainz RN sent for patient. Start room use. 9:35:55 H&P Date Dictated: 08/10/2020 Within 30 days and on chart., H&P Addendum completed by physician on day of procedure. (MUST COMPLETE FOR ALL OUTPATIENTS). 9:36:19 Patient allergic to Other allergyAZITHROMYCIN 9:51:45 Patient received from ICU to CCL 1 Alert and oriented. Tansferred to table in Supine position. 9:51:46 Warm blankets applied, and lola hugger turned on for patient comfort. 9:57:25 ECG and BP/O2 sat monitors applied to patient. 9:57:27 Vital chart was started 9:57:30 Baseline sample Acquired. 9:57:34 Full Disclosure recording started 9:57:37 Rhythm: sinus rhythm 9:57:40 Baseline sample Acquired. 9:57:44 Pre-procedure instructions explained to patient. 9:57:45 Pre-op teaching completed and patient verbalized understanding. 9:57:47 Family in patients room. 9:57:48 Patient NPO since Midnight. 9:57:50 Is the patient allergic to Iodine/contrast media? No. 9:57:51 Is patient on blood thinner?Yes 9:57:53 ACC The patient was administered the following blood thiners within the last 24 hours: ACCPlavix 9:57:59 PLAVIX YESTERDAY 9:58:00 Patient diabetic? No. 9:58:06 Previous problem with sedation/anesthesia? No ? 9:58:07 Snore? Yes 9:58:08 Sleep apnea? No 9:58:09 Deviated septum? No 9:58:10 Opens mouth fully? Yes 9:58:10 Sticks out tongue? Yes 9:58:12 Airway obstruction? No ? 9:58:13 Dentures? No ? 9:58:16 Pre procedure: right dorsailis pedis pulse 1+ Palpable, but thready & weak; easily obliterated 9:58:17 Modified Gregor's test Ulnar > 7 seconds. 9:58:19 Patient pain scale 0/10 ?. 9:58:25 IV patent on arrival in left hand with 0.9% NaCl at KVO. 9:58:27 Lab results completed and on chart. 9:58:30 Right groin area was prepped with chlora-prep and draped in sterile fashion 9:58:30 Alarms reviewed by R. N. 9:58:31 Sharps counted by scrub and verified by R.N. 9:58:34 Use device set Femoral Dx 9:58:35 ACIST Syringe (84454) opened to sterile field. 9:58:35 Bag Decanter () opened to sterile field. 9:58:36 ACIST Hand Control (83101) opened to sterile field. 9:58:36 ACIST Manifold (01143) opened to sterile field. 9:58:37 Tegaderm 4 x 4 (1626W) opened to sterile field. 9:58:38 Medline Cath Pack ([id number]) opened to sterile field. 9:58:39 DIAGNOSTIC Multipack 5Fr catheter set ([id number]) opened to sterile field. 9:58:40 SHEATH 5FR [place] ([id number]) opened to sterile field. 9:58:40 EMERALD Guide Wire (097-553) opened to sterile field. 9:58:43 Oxygen 2 l/min etCO2 Nasal cannula was administered by Mark Anthony Vigil RN; used for procedure; Verbal order read back and verified. 9:58:51 Lidocaine 2% 20ml vial added to field was administered by Uriel Chau MD; for local anesthetic; Verbal order read back and verified. 9:58:58 Heparin Flush Bag (1000units/500ml NS) 2 bags added to field was administered by Uriel Chau MD; used for procedure; Verbal order read back and verified. 9:59:08 0.9% NaCl 100 ml/hr I.V. was administered by Mark Anthony Vigil RN; Per physician; Verbal order read back and verified. 10:08:23 --------ALL STOP TIME OUT------ 10:08:24 Final Timeout: patient, procedure, and site verified with staff and physician. All members of the team are in agreement. 10:08:25 Right groin site verified by team. 10:08:28 Fire Safety Assessment: A--An alcohol-based skin anteseptic being used preoperatively., C--Open oxygen or nitrous oxide is being used., D--An ESU, laser, or fiber-optic light is being used. 10:08:30 Physical assessment completed. ASA score P 2 - A patient with mild systemic disease as per Uriel Chau MD. 10:08:33 1) 90+ Normal kidney functon but urine findings or structural abnormalities or genetic trait point to kidney disease. 10:08:37 Maximum allowable contrast dose (3.7 X eGFR X 0.75)250 ml. 10:08:40 Sedation plan: IV Moderate Sedation Medication:Versed, Fentanyl 10:09:28 Versed 1 mg I.V. was administered by Mark Anthony Vigil RN; for sedation; Verbal order read back and verified. 10:09:36 Fentanyl 50 mcg I.V. was administered by Mark Anthony Vigil RN; for sedation; Verbal order read back and verified. 10:11:08 Procedure started. 10:11:12 Local anesthetic to right femoral artery with Lidocaine 2% by Uriel Chau MD.INITIAL ACCESS ONLY 10:11:13 Versed 0.5 mg I.V. was administered by Mark Anthony Vigil RN; for sedation; Verbal order read back and verified. 10:11:18 Fentanyl 25 mcg I.V. was administered by Mark Anthony Vigil RN; for sedation; Verbal order read back and verified. 10:11:56 A 5 Fr sheath was inserted into the Right Femoral artery 10:13:45 A MULTIPACK JL 4.0 5Fr catheter was advanced over the wire and used for Procedure. 10:13:57 Versed 0.5 mg I.V. was administered by Mark Anthony Vigil RN; for sedation; Verbal order read back and verified. 10:14:00 Fentanyl 25 mcg I.V. was administered by Mark Anthony Vigil RN; for sedation; Verbal order read back and verified. 10:14:12 LCA angiography performed. 10:14:13 Catheter removed. 10:14:20 A MULTIPACK 3DRC 5Fr catheter was advanced over the wire and used for Procedure. 10:14:41 RCA angiography performed. 10:14:42 Catheter removed. 10:14:47 A MULTIPACK Pigtail 5 Fr catheter was advanced over the wire and used for Procedure. 10:16:33 LV gram done using [facility] 10:16:36 Injector settings: Ml/sec: 10, Volume: 20, 10:16:54 LV hemodynamics recorded. 10:17:02 EF : 35 % 10:17:24 Catheter removed. 10:17:31 EXOSEAL 5Fr (EX500) opened to sterile field. 10:17:51 Sheath removed intact; hemostasis achieved with Exoseal to the Right Femoral artery. 10:18:18 Procedure ended.(Physican Out) 10:18:29 Fluoroscopy time 01.20 minutes. 10:18:35 Fluoroscopy dose: 310 mGy 10:18:35 Flurop Dose total: 310 10:18:42 Dose Area Product 05753 mGy/cm. 10:19:01 Contrast amount:Isovue 300 61ml. 10:19:03 Maximum allowable dose exceeded? No. 10:19:03 Sharps counted by scrub and verified by R.N. 10:19:06 Post-op/insertion site Right Femoral artery dressed using a 4 x 4 and Tegaderm. 10:19:08 Post-procedure physical assessment completed. ASA score P 2 - A patient with mild systemic disease as per Uriel Chau MD. 10:19:12 Post procedure rhythm: sinus bradycardia 10:19:46 Estimated blood loss: 5 ml 10:19:47 Post procedure instruction explained to patient.Patient verbalizes understanding. 10:19:50 Patient needs reinforcement of post procedure teaching. 10:20:34 Procedure and supply charges have been captured, reviewed, submitted and are correct. 10:20:36 Procedure Complication : No complications 10:20:38 Vital chart was stopped 10:20:41 [facility] Findings: mild to moderate CAD (<70%) 10:20:42 Operative report dictated upon procedure completion. 10:20:42 See physician's report for complete and final results. 10:21:24 Report given to ICU. 10:21:26 Patient transfered to ICU with Bed. 10:21:31 Procedure ended. 10:21:31 Full Disclosure recording stopped 10:21:34 End room use (Document Last) 10:23:47 End room use (Document Last) 10:24:04 End room use (Document Last) Device Usage Item Name Manufacture Quantity Catalog Hospital Part Current Minimal L ot# / Number Charge Number Stock Stock Serial# Code ACIST Acist 1 [id number] [id number] 376216 404601 20 Syringe Medical (77307) Systems Inc Bag Microtek 1 2001S 835969 97304 387038 5 Decanter Medical Inc. () ACIST Hand Acist 1 86122 417345 707517 438050 5 Control Medical (90334) Systems Inc ACIST Acist 1 37347 385451 349691 252825 5 Manifold Medical (05581) Systems Inc Tegaderm 4 3M 1 1626W 629966 339345 131807 5 x 4 (1626W) Medline Medline 1 [id number] 379572 02664 780782 5 Cath Pack ([id number]) DIAGNOSTIC Cardinal 1 [id number] 952206 81153 879260 30 [facility] 5Fr catheter set (SZ3449) SHEATH 5FR Terumo 1 [id number] 210310 074737 192655 5 [place] (JXN745) EMERALD Cardinal 1 502-455 701795 498131 122086 5 Guide Wire [facility] (236-870) MULTIPACK Cardinal 1 141879 5 JL 4.0 5Fr Health catheter MULTIPACK Cardinal 1 882233 5 3DRC 5Fr Health catheter MULTIPACK Cardinal 1 105231 5 Pigtail 5 Health Fr catheter EXOSEAL 5Fr Cardinal 1 EX500 752541 752740 966522 10 (EX500) Health Signature Audit [place] Stage Time Signature Unsigned Intra-Procedure 08/11/2020 Nicole Balderas 10:23:47 AM RT(R) Intra-Procedure 08/11/2020 Ascencion Sainz RN 10:24:04 AM Intra-Procedure 08/11/2020 Uriel Aguilar 10:24:50 AM Miguel A LYNCH [address] [place] [address]
[~2020-08-10 00:49] MED LIST changes: +BACLOFEN20 M1 PO; +STERAPRED 5MG 65 M1 PO
--- NOTE | 2020-08-10 00:58 | NUR ---
P 211 B/P 110/73 PT AWAKE AND ALERT. DENIES PAIN
--- NOTE | 2020-08-10 01:04 | NUR ---
PT SIGNING CONSENT FORM FOR CARDIOVERSION WITH MODERATE SEDATION. DR WALTERS AT BEDSIDE
--- NOTE | 2020-08-10 01:17 | NUR ---
2ND EKG COMPLETED 108
--- NOTE | 2020-08-10 01:26 | NUR ---
PATIENT HEART RATE AND RYTHMN AT 0109 212 SVT. PATIENT CARDIVERSION AT 0110 AT 100J PER HCP VERBAL ORDERS. PATIENT HEART RATE AT 0110 109 AND SINUS TACHYCARDIA.
[2020-08-10 01:54] LABS: BASOPHILS 0.5 % (0-2); EOSINOPHILS 7.1 % (0-7); HEMATOCRIT 43.6 % (42.0-54.0); HEMOGLOBIN 14.8 g/dL (13.5-17.5); MCH 34.8 pg (26.0-34.0); MCV 102.5 fL (80.0-100.0); MEAN PLATELET VOLUME 7.5 fL (7.4-10.4); MONOCYTES 4.4 % (2-11); PLATELET COUNT 259 10x3/uL (130-400); RBC 4.25 10x6/uL (4.20-6.10); RDW 13.4 % (11.5-14.5); WBC 8.5 10x3/uL (4.8-10.8)
[2020-08-10 02:15] LABS: CALC OSMOLALITY 282 mosm/kg (275-300); CALCIUM 8.6 mg/dL (8.5-10.1); CARBON DIOXIDE 27.8 mmol/L (21.0-32.0); CHLORIDE - SERUM 102 mmol/L (98-107); CREATININE - SERUM 1.1 mg/dL (0.6-1.3); GLUCOSE 130 mg/dL (74-106); POTASSIUM - SERUM 3.3 mmol/L (3.5-5.1); SODIUM 141 mmol/L (136-145); UREA NITROGEN 12 mg/dL (7-18); eGFR NON AFRICAN AMERICAN 79 mL/min (90-120)
[2020-08-10 02:20] LABS: APTT 32.6 SECONDS (22.8-39.4); INR 1.15 (0.85-1.17); PROTIME 13.6 SECONDS (11.6-15.0)
[2020-08-10 02:28] LABS: ALBUMIN 3.4 g/dL (3.4-5.0); ALKALINE PHOSPHATASE 116 U/L (30-120); ALT (SGPT) 31 U/L (10-68); BILIRUBIN - TOTAL 0.56 mg/dL (0.2-1.3); CKMB 3.5 U/L (0.0-3.6); CREATINE KINASE 88 UL (21-232); MAGNESIUM - SERUM 1.7 mg/dL (1.8-2.4)
[2020-08-10 02:31] LABS: TROPONIN-I 0.362 ng/mL (0.000-0.060)
--- NOTE | 2020-08-10 02:57 | NUR ---
RECEIVED PT TO ROOM 2302 VIA STRETCHER ACCOMPANIED BY ER STAFF. ICU MONITORS ESTABLISHED WITH ALARMS ON, HR 73 SR ON CM, PT AWAKE AND ALERT, ABLE TO ANSWER QUESTIONS WITHOUT DIFFICULTY.
[2020-08-10] MEDS ORDERED: METOPROLOL TART50 MG PO (03:26)
[2020-08-10] MEDS ORDERED: CELEXA20 MG PO (03:30)
[2020-08-10] MEDS ORDERED: HYDROCODON-ACE1 EA10 PO (03:33)
[2020-08-10 04:56] LABS: APTT 33.7 SECONDS (22.8-39.4); INR 1.14 (0.85-1.17); PROTIME 13.6 SECONDS (11.6-15.0)
[2020-08-10 05:10] LABS: BASOPHILS 0.3 % (0-2); EOSINOPHILS 4.9 % (0-7); HEMATOCRIT 42.8 % (42.0-54.0); HEMOGLOBIN 14.3 g/dL (13.5-17.5); LYMPHOCYTES 21.8 % (15-50); MCH 34.2 pg (26.0-34.0); MCHC 33.5 g/dL (31.0-37.0); MCV 102.1 fL (80.0-100.0); MEAN PLATELET VOLUME 7.5 fL (7.4-10.4); MONOCYTES 5.7 % (2-11); NEUTROPHILS 67.3 % (40-80); PLATELET COUNT 277 10x3/uL (130-400); RBC 4.19 10x6/uL (4.20-6.10); RDW 13.5 % (11.5-14.5); WBC 10.2 10x3/uL (4.8-10.8)
[2020-08-10 05:20] LABS: ALBUMIN 3.2 g/dL (3.4-5.0); ALKALINE PHOSPHATASE 138 U/L (30-120); BILIRUBIN - TOTAL 0.62 mg/dL (0.2-1.3); CALC OSMOLALITY 278 mosm/kg (275-300); CALCIUM 8.4 mg/dL (8.5-10.1); CHLORIDE - SERUM 103 mmol/L (98-107); CKMB 7.7 U/L (0.0-3.6); CREATINE KINASE 106 UL (21-232); CREATININE - SERUM 0.9 mg/dL (0.6-1.3); GLUCOSE 114 mg/dL (74-106); MAGNESIUM - SERUM 1.9 mg/dL (1.8-2.4); PHOSPHOROUS 3.7 mg/dL (2.5-4.9); PROTEIN - SERUM 6.7 g/dL (6.4-8.2); SODIUM 139 mmol/L (136-145); UREA NITROGEN 12 mg/dL (7-18); eGFR NON AFRICAN AMERICAN > 90 mL/min (90-120)
[2020-08-10 05:26] LABS: ALT (SGPT) 43 U/L (10-68)
[2020-08-10 05:28] LABS: TROPONIN-I 1.383 ng/mL (0.000-0.060)
--- NOTE | 2020-08-10 06:20 | NUR ---
DR BAUER NOTIFIED OF CONSULT PER MD ORDER AND OF TROPONIN TREND, ORDER RECEIVED AND PLACED IN [facility].
[2020-08-10 13:03] LABS: EOSINOPHILS 9.9 % (0-7); HEMATOCRIT 42.1 % (42.0-54.0); LYMPHOCYTES 38.1 % (15-50); MCHC 33.3 g/dL (31.0-37.0); MCV 102.1 fL (80.0-100.0); MEAN PLATELET VOLUME 7.5 fL (7.4-10.4); MONOCYTES 7.6 % (2-11); NEUTROPHILS 43.4 % (40-80); PLATELET COUNT 262 10x3/uL (130-400); RBC 4.13 10x6/uL (4.20-6.10); RDW 13.8 % (11.5-14.5); WBC 7.3 10x3/uL (4.8-10.8)
[2020-08-10 13:14] LABS: ALT (SGPT) 41 U/L (10-68); CALC OSMOLALITY 272 mosm/kg (275-300); CALCIUM 8.4 mg/dL (8.5-10.1); CARBON DIOXIDE 30.2 mmol/L (21.0-32.0); CHLORIDE - SERUM 103 mmol/L (98-107); CHOL - HDL RATIO 5.7 ratio (2.3-4.9); CHOLESTEROL, TOTAL 189 mg/dL (0-200); GLUCOSE 84 mg/dL (74-106); HDL CHOLESTEROL 33 mg/dL (32-96); LDL CHOLESTEROL 101 mg/dL (0-100); LDL-HDL RATIO 3.1 ratio (1.5-3.5); POTASSIUM - SERUM 4.1 mmol/L (3.5-5.1); SODIUM 137 mmol/L (136-145); TRIGLYCERIDE 278 mg/dL (30-200); UREA NITROGEN 12 mg/dL (7-18); eGFR NON AFRICAN AMERICAN 89 mL/min (90-120)
[2020-08-10 13:29] LABS: CKMB 12.5 U/L (0.0-3.6); CREATINE KINASE 142 UL (21-232)
[2020-08-10 13:35] LABS: TROPONIN-I 3.228 ng/mL (0.000-0.060)
[2020-08-11] VITALS (9 sets, daily range): BP systolic 88–136; BP diastolic 52–95
[2020-08-11 04:23] LABS: BASOPHILS 0.5 % (0-2); EOSINOPHILS 5.5 % (0-7); HEMATOCRIT 42.8 % (42.0-54.0); HEMOGLOBIN 14.3 g/dL (13.5-17.5); LYMPHOCYTES 29.8 % (15-50); MCH 34.2 pg (26.0-34.0); MCHC 33.4 g/dL (31.0-37.0); MCV 102.2 fL (80.0-100.0); MEAN PLATELET VOLUME 7.7 fL (7.4-10.4); MONOCYTES 5.3 % (2-11); NEUTROPHILS 58.9 % (40-80); PLATELET COUNT 265 10x3/uL (130-400); RBC 4.19 10x6/uL (4.20-6.10); RDW 13.4 % (11.5-14.5); WBC 8.6 10x3/uL (4.8-10.8)
[2020-08-11 04:42] LABS: CALC OSMOLALITY 282 mosm/kg (275-300); CALCIUM 8.7 mg/dL (8.5-10.1); CARBON DIOXIDE 27.5 mmol/L (21.0-32.0); CHLORIDE - SERUM 106 mmol/L (98-107); CREATININE - SERUM 0.9 mg/dL (0.6-1.3); GLUCOSE 104 mg/dL (74-106); MAGNESIUM - SERUM 1.8 mg/dL (1.8-2.4); POTASSIUM - SERUM 3.7 mmol/L (3.5-5.1); SODIUM 142 mmol/L (136-145); UREA NITROGEN 12 mg/dL (7-18); eGFR NON AFRICAN AMERICAN > 90 mL/min (90-120)
[2020-08-11 05:03] LABS: PHOSPHOROUS 2.4 mg/dL (2.5-4.9)
--- NOTE | 2020-08-11 09:57 | CN ---
PATIENT NAME:PATRIA ULRICH MEDICAL RECORD: [id number] : 84 LOCATION:[facility] ADMIT DATE: 08/10/20 ACCOUNT: [id number] CONSULTING PHYSICIAN: BEVERLEY BAUER MD REFERRING PHYSICIAN: LING GALINDO MD DATE OF CONSULTATION: 08/10/2020 HISTORY OF PRESENT ILLNESS: A 40-year-old gentleman with a history of coronary artery disease, status post intervention via Dr. Good, has a history of dyslipidemia, hypertension as well as cardiac arrhythmias, family history of coronary artery disease, admitted with wide complex tachycardia. Has an indeterminate axis right bundle with QRS duration of about 140 and not responsive to adenosine requiring cardioversion, synchronized at 100 joules shinto of normal sinus rhythm. We are asked to see him concerning his cardiovascular status. PAST MEDICAL HISTORY: Includes history of; 1. Coronary artery disease described above, stenting to the right coronary. 2. Cardiomyopathy, EF 40%. 3. Hypertension. 4. Hyperlipidemia. ALLERGIES: INCLUDE ERYTHROMYCIN. MEDICATIONS: Chronically include Llewellyn 10/325 one p.o. q.4 as needed, Neurontin 800 mg p.o. q.i.d., Celexa 20 mg p.o. daily, aspirin 81 daily, Toprol 100 b.i.d., lisinopril 10 daily, atorvastatin 40 daily, Plavix 75 daily, baclofen 200 mg p.o. q.i.d. p.r.n. SOCIAL HISTORY: Nonsmoker, nondrinker. Easily takes care all his ADLs. Does exercise on a regular basis. REVIEW OF SYSTEMS: The patient reports easy bruising but reports no swollen glands. The patient reports no fever, no night sweats, no significant weight gain, no significant weight loss. No significant exercise tolerance. The patient reports no dry eyes, no irritation, no vision change. Patient reports no difficulty hearing and no ear pain. Patient reports no frequent nose bleeds or nose and sinus problems. Patient reports on arm pain on exertion. No shortness of breath while lying down. No history of heart murmur. Patient reports no cough, no wheezing or coughing up blood. Patient reports no abdominal pain, no vomiting. Normal appetite. No diarrhea and not vomiting blood. No nausea and no constipation. Patient reports no incontinence. No difficulty urinating. No hematuria. No increased frequency. Patient reports no muscle aches. No weakness, no arthralgias, no back pain. No swelling of the extremities. Patient reports no abnormal mole, no jaundice, no rashes. Reports no loss of consciousness. No weakness and no numbness. No seizures, dizziness, or headaches. The patient reports no depression, no sleep disturbance, feeling safe in a relationship and no alcohol abuse. Patient reports on fatigue. Reports no runny nose or sinus pressure. No itching, no hives, and no frequent sneezing. PHYSICAL EXAMINATION: GENERAL: Well-developed, well-nourished, no acute distress, appears stated age, alert and oriented times 3. VITAL SIGNS: 105/66, pulse 64 and regular. CONSULT REPORT [id number] PATRIA ULRICH HEENT: Normocephalic, atraumatic. NECK: No bruits noted. HEART: Regular. LUNGS: Good air excursion. ABDOMEN: Soft, nontender. EXTREMITIES: Pulses are well preserved, 2+ with no edema. DIAGNOSTIC STUDIES: EKG during wide complex tachycardia is described as above. Post-cardioversion is normal at this point. IMPRESSION: Questionable whether this is acute coronary event versus arrhythmia with underlying substrate with a known cardiomyopathy. We will begin sotalol in place of the metoprolol to take advantage of the potassium channel blockade. Angiography in the a.m. Further recommendation based on clinical course. TRANSINT:[id number] Voice Confirmation ID: [id number] DOCUMENT ID: [id number] BEVERLEY BAUER MD at 0957 CC: [id number] DICTATION DATE: 08/10/20 1100 LEATHER CLEANER: 08/10/20 1119 ADM IN [id number] [place] [address]
== END 2020-08-11 14:26 | disposition home or self-care (01) | DRG 287 ==
LOC: D.ER 00:49 → OBSVTIME 02:09 → D.ICU 02:09
PROVIDERS: Family Medicine; Internal Medicine Interventional Cardiology; ADMIT Family Medicine; ATTEND Family Medicine
PROC: B2111ZZ Fluoroscopy of Multiple Coronary Arteries using Low Osmolar Contrast (ICD-10-PCS; 2020-08-11)
PROC: 4A023N7 Measurement of Cardiac Sampling and Pressure, Left Heart, Percutaneous Approach (ICD-10-PCS; principal; 2020-08-11 09:34)
DX: I47.1 Supraventricular tachycardia (principal); I42.9 Cardiomyopathy, unspecified; E78.5 Hyperlipidemia, unspecified; G62.9 Polyneuropathy, unspecified; I50.9 Heart failure, unspecified; I11.0 Hypertensive heart disease with heart failure; F41.8 Other specified anxiety disorders; G47.00 Insomnia, unspecified

== ENCOUNTER 2020-08-25 17:19 | Observation (INO) | payer OTHER ==
[~2020-08-25] VITALS: Ht 175.3 cm; Wt 65.8 kg
--- NOTE | ~2020-08-25 | DS ---
PATIENT:PATRIA ULRICH :84 MEDICAL RECORD: [id number] DISCHARGE SUMMARY ADMISSION DATE: 08/25/20 DISCHARGE DATE: 08/26/20 DATE OF DISCHARGE: 08/26/2020 PROBLEM LIST: 1. Ventricular tachycardia this admission. 2. Coronary artery disease, status post inferior myocardial infarction, subsequent stenting. Most recent angiography with patent stent. 3. Mild ischemic cardiomyopathy with inferior wall motion and EF 40% to 45%. 4. Hypertension. 5. Hyperlipidemia. BRIEF HISTORY AND HOSPITAL COURSE: A 40-year-old gentleman with history of coronary artery disease admitted with wide complex tachycardia, underwent cardioversion with hoahaoism of normal sinus rhythm. 12 lead reviewed. Obviously ventricular tachycardia. Case discussed with Dr. Tyler, EP, in [place]. The patient has been loaded on amiodarone IV, we will start orally as well. He was discharged home in good condition. Follow up with Dr. Tyler's office in the near future. ACTIVITIES: As tolerated. DIET: AHA diet. TRANSINT:[id number] Voice Confirmation ID: [id number] DOCUMENT ID: [id number] BEVERLEY BAUER MD CC: [id number] DICTATION DATE: 08/26/20 1505 ETL INFORMATICA ARCHITECT: 08/27/20 0220 DIS IN 08/26/20 [place] [id number] [place] [id number]
[~2020-08-25 17:19] MED LIST changes: +CELEXA20 MG PO; +HYDROCODON-ACE1 EA10 PO; +METOPROLOL TART50 MG PO
[2020-08-25 18:32] LABS: BASOPHILS 0.6 % (0-2); EOSINOPHILS 2.8 % (0-7); HEMATOCRIT 45.3 % (42.0-54.0); LYMPHOCYTES 20.8 % (15-50); MCHC 33.1 g/dL (31.0-37.0); MCV 102.6 fL (80.0-100.0); MEAN PLATELET VOLUME 7.8 fL (7.4-10.4); NEUTROPHILS 68.8 % (40-80); RBC 4.42 10x6/uL (4.20-6.10); RDW 13.3 % (11.5-14.5); WBC 15.7 10x3/uL (4.8-10.8)
[2020-08-25 18:33] LABS: PLATELET COUNT 360 10x3/uL (130-400)
[2020-08-25 18:40] LABS: CALC OSMOLALITY 285 mosm/kg (275-300); CALCIUM 8.4 mg/dL (8.5-10.1); CHLORIDE - SERUM 105 mmol/L (98-107); CREATININE - SERUM 1.3 mg/dL (0.6-1.3); GLUCOSE 168 mg/dL (74-106); POTASSIUM - SERUM 3.4 mmol/L (3.5-5.1); SODIUM 142 mmol/L (136-145); UREA NITROGEN 11 mg/dL (7-18); eGFR NON AFRICAN AMERICAN 65 mL/min (90-120)
[2020-08-25 19:00] LABS: ALKALINE PHOSPHATASE 78 U/L (30-120); ALT (SGPT) 23 U/L (10-68); BILIRUBIN - TOTAL 0.78 mg/dL (0.2-1.3); CKMB 0.9 U/L (0.0-3.6); CREATINE KINASE 56 UL (21-232); PROTEIN - SERUM 6.4 g/dL (6.4-8.2)
[2020-08-25 19:06] LABS: TROPONIN-I 0.099 ng/mL (0.000-0.060)
--- NOTE | 2020-08-25 19:11 | NUR ---
PATIENT REPORT RECIEVED FROM ALFONSO AVILEZ AND CARE TRANSFERRED TO ALFONSO SORTO
[2020-08-25 19:17] VITALS: BP 76/40
--- NOTE | 2020-08-25 20:08 | NUR ---
TRIED TO CALL REPORT AT 2007, LEFT ON HOLD, NO ANSWER
--- NOTE | 2020-08-25 22:59 | NUR ---
C/O NECK PAIN. MIXED MORPHINE AND B/P 87/45. HELD MORPHINE AND WILL OFFER ACETAMWNOPHEN.
--- NOTE | 2020-08-25 23:19 | NUR ---
PAGED DIGITAL CONTENT MANAGER ELECTRONIC IMAGING SYSTEM OPERATOR AND AWAITING CALL BACK FOR DIRECTION ON PAIN MED AND SLEEPING MEDICATION. THIS NURSE TOOK B/P MANUALLY 87/45.
--- NOTE | 2020-08-25 23:21 | NUR ---
DR. BAUER CALLED BACK WITH ORDER TO GIVE AMBIEN 10MG. THIS NURSE DID EXPLAIN B/P TO .
[2020-08-25 23:51] VITALS: BP 84/50; BMI 21.5
--- NOTE | 2020-08-25 23:59 | NUR ---
RECIEVED REPORT FROM MINISTERIO HAMILTON IN ER. ARRIVED TO FLOOR ON STRETCHER. TRANSFERED SELF TO BED. ALERT AND ORIENTED X4. UP AD AJ. DENIES ANY NEEDS. ASSESSMENT COMPLETED.
[2020-08-26] VITALS: BP 87/45
[2020-08-26 04:00] VITALS: BP 81/48
--- NOTE | 2020-08-26 08:00 | NUR ---
PT RECEIVED AWAKE AND ALERT IN BED. NPO FOR CARDIO CONSULT. TELEMETRY IN USE. NO COMPLAINTS OF CHEST PAIN.
[2020-08-26 08:35] VITALS: BP 92/54
[2020-08-26 12:20] VITALS: BP 95/53
[2020-08-26 12:36] LABS: BASOPHILS 0.5 % (0-2); EOSINOPHILS 3.8 % (0-7); HEMATOCRIT 40.9 % (42.0-54.0); HEMOGLOBIN 13.6 g/dL (13.5-17.5); LYMPHOCYTES 31.8 % (15-50); MCH 34.1 pg (26.0-34.0); MCHC 33.2 g/dL (31.0-37.0); MCV 102.7 fL (80.0-100.0); MEAN PLATELET VOLUME 7.7 fL (7.4-10.4); MONOCYTES 6.2 % (2-11); NEUTROPHILS 57.7 % (40-80); RBC 3.98 10x6/uL (4.20-6.10); RDW 13.3 % (11.5-14.5)
[2020-08-26 12:40] LABS: PLATELET COUNT 230 10x3/uL (130-400); WBC 7.9 10x3/uL (4.8-10.8)
[2020-08-26 12:49] LABS: ALT (SGPT) 20 U/L (10-68); CALCIUM 8.2 mg/dL (8.5-10.1); CARBON DIOXIDE 28.7 mmol/L (21.0-32.0); CHLORIDE - SERUM 108 mmol/L (98-107); CHOL - HDL RATIO 5.7 ratio (2.3-4.9); CHOLESTEROL, TOTAL 193 mg/dL (0-200); HDL CHOLESTEROL 34 mg/dL (32-96); LDL CHOLESTEROL 115 mg/dL (0-100); LDL-HDL RATIO 3.4 ratio (1.5-3.5); SODIUM 142 mmol/L (136-145); TRIGLYCERIDE 224 mg/dL (30-200)
[2020-08-26 12:50] LABS: CALC OSMOLALITY 280 mosm/kg (275-300); CREATININE - SERUM 0.9 mg/dL (0.6-1.3); GLUCOSE 96 mg/dL (74-106); UREA NITROGEN 8 mg/dL (7-18); eGFR NON AFRICAN AMERICAN > 90 mL/min (90-120)
[2020-08-26 13:22] VITALS: Ht 175.3 cm; Wt 65.8 kg
[2020-08-26 14:08] LABS: BILIRUBIN NEGATIVE (NEGATIVE); KETONE NEGATIVE mg/dL (< 1+); NITRITE NEGATIVE (NEGATIVE); PH 6.5 (5.0-8.0); UROBILINOGEN NORMAL mg/dL (< 2)
== END 2020-08-26 19:51 | disposition home or self-care (01) ==
LOC: D.ER 17:19 → OBSVTIME 19:49 → D.M2 19:49
PROVIDERS: Emergency Medicine; ADMIT Internal Medicine Interventional Cardiology; ATTEND Internal Medicine Interventional Cardiology
DX: I47.2 Ventricular tachycardia (principal); I10 Essential (primary) hypertension; G62.9 Polyneuropathy, unspecified; Z72.0 Tobacco use; I25.10 Atherosclerotic heart disease of native coronary artery without angina pectoris; I25.5 Ischemic cardiomyopathy; E78.5 Hyperlipidemia, unspecified

== ENCOUNTER 2020-09-04 07:00 | Inpatient (IN) | payer OTHER ==
[2020-09-04] VITALS (18 sets, daily range): BP systolic 53–136; BP diastolic 32–82
[~2020-09-04] VITALS: Ht 175.3 cm; Wt 69.1 kg
[2020-09-04 07:24] LABS: BASOPHILS 0.3 % (0-2); EOSINOPHILS 0.6 % (0-7); HEMATOCRIT 46.7 % (42.0-54.0); HEMOGLOBIN 15.1 g/dL (13.5-17.5); LYMPHOCYTES 25.6 % (15-50); MCH 33.9 pg (26.0-34.0); MCHC 32.4 g/dL (31.0-37.0); MCV 104.7 fL (80.0-100.0); MEAN PLATELET VOLUME 8.3 fL (7.4-10.4); MONOCYTES 7.5 % (2-11); PLATELET COUNT 212 10x3/uL (130-400); RBC 4.46 10x6/uL (4.20-6.10); RDW 13.3 % (11.5-14.5); WBC 15.9 10x3/uL (4.8-10.8)
[2020-09-04 07:35] LABS: CALC OSMOLALITY 284 mosm/kg (275-300); CALCIUM 8.6 mg/dL (8.5-10.1); CARBON DIOXIDE 20.7 mmol/L (21.0-32.0); CHLORIDE - SERUM 104 mmol/L (98-107); CREATININE - SERUM 2.2 mg/dL (0.6-1.3); GLUCOSE 124 mg/dL (74-106); POTASSIUM - SERUM 4.7 mmol/L (3.5-5.1); SODIUM 139 mmol/L (136-145); UREA NITROGEN 30 mg/dL (7-18); eGFR NON AFRICAN AMERICAN 36 mL/min (90-120)
--- NOTE | 2020-09-04 07:45 | NUR ---
Amiodarone has infused. Pt diaphoretic, no change in heart rate/rythm. Physician notified. New orders placed.
[2020-09-04 07:55] LABS: ALBUMIN 3.3 g/dL (3.4-5.0); ALKALINE PHOSPHATASE 106 U/L (30-120); ALT (SGPT) 591 U/L (10-68); BILIRUBIN - TOTAL 0.88 mg/dL (0.2-1.3); CKMB 1.4 U/L (0.0-3.6); CREATINE KINASE 71 UL (21-232); MAGNESIUM - SERUM 2.1 mg/dL (1.8-2.4); PROTEIN - SERUM 7.1 g/dL (6.4-8.2)
[2020-09-04 07:59] LABS: TROPONIN-I 0.576 ng/mL (0.000-0.060)
--- NOTE | 2020-09-04 08:00 | NUR ---
Lab called with elevated troponin of 0.576. Physician notified.
--- NOTE | 2020-09-04 08:08 | NUR ---
Pt has signed consent for cardioversion.
--- NOTE | 2020-09-04 08:14 | NUR ---
Respiratory is in room with this nurse and Dr. Lara. One 100J shock delivered by Dr. Lara after morphine and versed given. Pt's rythym changed to sinus bradycardia (45 beats per minute). Pt arousable with verbal stimuli.
--- NOTE | 2020-09-04 09:19 | NUR ---
Levophed started at 5mcg/min per order.
--- NOTE | 2020-09-04 09:55 | NUR ---
Levophed increased to 6mcg/min per policy.
--- NOTE | 2020-09-04 10:15 | NUR ---
Pt alert and oriented. Reports "feeling better but sore". Pt appears in no acute distress.
--- NOTE | 2020-09-04 11:15 | NUR ---
RELIEVING PRIMARY RN FOR LUNCH BREAK AT THIS TIME.
--- NOTE | 2020-09-04 15:30 | NUR ---
Pt appears in no acute distress.
--- NOTE | 2020-09-04 17:30 | NUR ---
Pt appears in no acute distress. Resting in room with lights off. Has no wants.
--- NOTE | 2020-09-04 19:10 | NUR ---
Report given to Darlene HAMILTON.
[2020-09-05] VITALS (23 sets, daily range): BP systolic 103–135; BP diastolic 33–84; Ht 175.3 cm; Wt 69.1 kg
[2020-09-05 01:09] LABS: BACTERIA FEW HPF (<MOD); BILIRUBIN NEGATIVE (NEGATIVE); KETONE NEGATIVE mg/dL (< 1+); NITRITE NEGATIVE (NEGATIVE); PH 5.5 (5.0-8.0); UROBILINOGEN NORMAL mg/dL (< 2); WHITE CELLS - URINE 1 HPF (0-1)
[2020-09-05 01:15] LABS: UDS - AMPHET NEGATIVE QUAL (NEGATIVE); UDS - BARB NEGATIVE QUAL (NEGATIVE); UDS - BENZO POSITIVE QUAL (NEGATIVE); UDS - COCAINE NEGATIVE QUAL (NEGATIVE); UDS - OPIATE POSITIVE QUAL (NEGATIVE); UDS - PCP NEGATIVE QUAL (NEGATIVE); UDS - THC NEGATIVE QUAL (NEGATIVE)
[2020-09-05 05:25] LABS: EOSINOPHILS 2.1 % (0-7); HEMATOCRIT 41.7 % (42.0-54.0); HEMOGLOBIN 14.2 g/dL (13.5-17.5); MCH 34.3 pg (26.0-34.0); MCHC 33.9 g/dL (31.0-37.0); MEAN PLATELET VOLUME 8.9 fL (7.4-10.4); MONOCYTES 5.9 % (2-11); PLATELET COUNT 180 10x3/uL (130-400); RBC 4.13 10x6/uL (4.20-6.10)
[2020-09-05 05:43] LABS: WBC 11.5 10x3/uL (4.8-10.8)
[2020-09-05 06:16] LABS: ALBUMIN 3.4 g/dL (3.4-5.0); BILIRUBIN - DIRECT 0.16 mg/dL (0.00-0.30); BILIRUBIN - INDIRECT 0.86 mg/dL (0.00-1.00); BILIRUBIN - TOTAL 1.02 mg/dL (0.2-1.3); CALCIUM 8.2 mg/dL (8.5-10.1); CARBON DIOXIDE 21.5 mmol/L (21.0-32.0); MAGNESIUM - SERUM 1.7 mg/dL (1.8-2.4); PROTEIN - SERUM 6.8 g/dL (6.4-8.2)
[2020-09-05 07:07] LABS: ANION GAP 15.2 mmol/L (8-16); CREATININE - SERUM 1.2 mg/dL (0.6-1.3); POTASSIUM - SERUM 3.7 mmol/L (3.5-5.1); TROPONIN-I 0.8 ng/mL (0.000-0.060)
[2020-09-05 09:55] LABS: AMYLASE - SERUM 28 U/L (25-115)
[2020-09-05 09:56] LABS: LIPASE 22 U/L (73-393)
--- NOTE | 2020-09-05 12:00 | NUR ---
LEVOPHED STOPPED AT THIS TIME. WILL CONTINUE TO MONITOR BP.
--- NOTE | 2020-09-05 12:22 | NUR ---
MAGNESIUM INFUSION COMPLETE AT THIS TIME.
[2020-09-05] MEDS ORDERED: BAYER CHEWABLE81 MG PO (22:53)
[2020-09-05] MEDS ORDERED: PACERONE200 MG PO (22:54)
--- NOTE | 2020-09-05 23:14 | NUR ---
PT ARRIVED VIA W/C FROM ER AT 2151 HRS. NO DISTRESS NOTED. ALERT AND ORIENTED TO PERSON, PLACE AND TIME. MAEE. IV TO RAC WITH NS AT 100CC/HR. IV PATENT. VSS. SB PER CM HR 54. ADMISSION ASSESSMENT, HISTORY AND HOME MED LIST COMPLETED AT THIS TIME. PT CURRENTLY RESTING WITH EYES CLOSED. RESP EVEN AND REGULAR. SR UP X1,CALL LIGHT WITHIN REACH.
--- NOTE | 2020-09-06 00:16 | NUR ---
NORCO 10/325 PO GIVEN FOR C/O CHRONIC BACK PAIN. CALL LIGHT WITHIN REACH.
[2020-09-06 01:50] VITALS: BP 124/67
--- NOTE | 2020-09-06 02:37 | NUR ---
IV OCCLUDED. DC'D WITH CATHETER INTACT. PT REFUSES IV AT THIS TIME. CALL LIGHT WITHIN REACH.
--- NOTE | 2020-09-06 04:26 | NUR ---
PT RESTING WITH EYES CLOSED. RESP EVEN AND REGULAR. CALL LIGHT WITHIN REACH.
[2020-09-06 05:41] VITALS: BP 132/72
--- NOTE | 2020-09-06 06:30 | NUR ---
BEDSIDE REPORT RECEIVED. NO CURRENT PAIN OR DISTRESS. IV TO LT FOREARM PATIENT. CONTINUES WITH EVEN RESP ON ROOM AIR.
--- NOTE | 2020-09-06 06:30 | NUR ---
BEDSIDE REPORT GIVEN. PATIENT AWAKE AND ALERT. NO CURRENT DISTRESS. RESP EVEN AND UNLABORED ROOM AIR. NO IV AT THIS TIME.
--- NOTE | 2020-09-06 06:34 | NUR ---
VSS THROUGHOUT NIGHT. SB PER CM. PT STATES NORCO CONTROLS PAIN. NEEDS MET; WILL CONTINUE TO MONITOR.
[2020-09-06 07:14] LABS: HEPATITIS C ANTIBODY <0.1 S/CO RAT (0.0-0.9)
--- NOTE | 2020-09-06 07:59 | NUR ---
PATIENT AWAKE AND ALERT. NO CURRENT PAIN OR DISTRESS. RESP EVEN AND UNLABORED ON ROOM AIR. LUNG SOUNDS CLEAR WITH DIMINISHED IN LOWER LUNGS. HEART SOUNDS REGULAR RATE AND RYTHYM. BOWEL SOUNDS ACTIVE. PATIENT UP AT AJ. WITH 1 PERSON ASSIST.
--- NOTE | 2020-09-06 08:53 | NUR ---
PATIENT AWAKE AND ALERT. GOOD MOOD. NO CURRENT DISTRESS. RESP EVEN AND UNLABORED. LUNG SOUNDS CLEAR. HEART SOUNDS REGULAR RATE AND RYTHYM. TELE IN PLACE. NO IV ACCESS AT THIS TIME. BOWEL SOUNDS ACTIVE. PATIENT UP AT AJ. COMPLAINED OF PAIN TO BACK PRN NORCO ADMINISTERED.
[2020-09-06 09:11] VITALS: BP 112/73
[2020-09-06 13:40] LABS: BASOPHILS 0.8 % (0-2); EOSINOPHILS 9.3 % (0-7); HEMATOCRIT 38.3 % (42.0-54.0); LYMPHOCYTES 31.3 % (15-50); MCH 34.2 pg (26.0-34.0); MCHC 33.9 g/dL (31.0-37.0); MCV 101.1 fL (80.0-100.0); MEAN PLATELET VOLUME 8.5 fL (7.4-10.4); MONOCYTES 6.7 % (2-11); NEUTROPHILS 51.9 % (40-80); RBC 3.79 10x6/uL (4.20-6.10); RDW 13.1 % (11.5-14.5)
[2020-09-06 13:44] LABS: PLATELET COUNT 141 10x3/uL (130-400); WBC 6.2 10x3/uL (4.8-10.8)
[2020-09-06] MEDS ORDERED: NICODERM CQ1 EAC3 TRANSDERM (14:08)
[2020-09-06 14:23] LABS: ALBUMIN 2.9 g/dL (3.4-5.0); ALKALINE PHOSPHATASE 90 U/L (30-120); BILIRUBIN - TOTAL 1.23 mg/dL (0.2-1.3); CALCIUM 7.9 mg/dL (8.5-10.1); CHLORIDE - SERUM 110 mmol/L (98-107); CREATININE - SERUM 0.9 mg/dL (0.6-1.3); GLUCOSE 79 mg/dL (74-106); MAGNESIUM - SERUM 1.8 mg/dL (1.8-2.4); PHOSPHOROUS 3.5 mg/dL (2.5-4.9); POTASSIUM - SERUM 3.5 mmol/L (3.5-5.1); PROTEIN - SERUM 5.5 g/dL (6.4-8.2); SODIUM 146 mmol/L (136-145); eGFR NON AFRICAN AMERICAN > 90 mL/min (90-120)
[2020-09-06 14:27] LABS: ALT (SGPT) 1262 U/L (10-68); CALC OSMOLALITY 288 mosm/kg (275-300); CARBON DIOXIDE 28.5 mmol/L (21.0-32.0); UREA NITROGEN 10 mg/dL (7-18)
--- NOTE | 2020-09-06 15:40 | NUR ---
I have reviewed this patient and I concur with the Shift Assessment completed by the Licensed Practical Nurse today this shift.
--- NOTE | 2020-09-07 17:50 | MORECARE ---
CASE MANAGEMENT DISCHARGE SUMMARY PATIENT: PATRIA ULRICH UNIT: [id number] ADM DATE: 09/04/20 AGE: 40 : 84 SEX: M ROOM/BED: D.[facility] AUTHOR: SRIKANTHDOC PHYSICIAN: REFERRING PHYSICIAN: TEVIN KLEIN MD DATE OF SERVICE: 09/07/20 Case Management Discharge Planning Summary DCP REVIEW SUMMARY ANTICIPATED D/C DATE: EXPECTED LOS : CASE STATUS: DCP Complete INITIAL REVIEW: 09/04/2020 INITIAL REVIEWER: Rosa Nugent FINAL DISCHARGE DISPOSITION: : FINAL REVIEWER: FINAL REVIEW DATE: DCP [employer] QUESTION: ANSWER : PATIENT: PATRIA ULRICH ENCOUNTER: [id number] MEDICAL RECORD#: [id number] ADMISSION DATE: 09/04/2020 DISCHARGE DATE: 09/06/2020 ATTENDING MD: : AGE: 40 MARITAL STATUS: M DC PLAN ID: [id number] FACILITY: [facility] PRINTED ON: 09/07/20 17:50 CT All edits/amendments must be made on the electronic document DICTATION DATE: 09/07/201749 ANESTHETIST: EBENEZER 09/07/201749 RPT#: [id number] DC DATE:09/06/20 STATUS: DIS IN [facility] [address] [place] [address] END OF REPORT
== END 2020-09-06 17:36 | disposition home or self-care (01) | DRG 683 ==
LOC: D.ER 07:00 → D.EDHOLD 09:44 → D.M2 09-05 20:55
PROVIDERS: Emergency Medicine; Family Medicine; Internal Medicine Pulmonary Disease; ADMIT Family Medicine; ATTEND Family Medicine
DX: N17.9 Acute kidney failure, unspecified (principal); I24.8 Other forms of acute ischemic heart disease; I50.22 Chronic systolic (congestive) heart failure; R00.0 Tachycardia, unspecified; I95.9 Hypotension, unspecified; D72.829 Elevated white blood cell count, unspecified; R77.8 Other specified abnormalities of plasma proteins; D75.89 Other specified diseases of blood and blood-forming organs; I08.1 Rheumatic disorders of both mitral and tricuspid valves; I11.0 Hypertensive heart disease with heart failure; F41.9 Anxiety disorder, unspecified; F32.9 Major depressive disorder, single episode, unspecified; E78.5 Hyperlipidemia, unspecified; G62.9 Polyneuropathy, unspecified; I45.10 Unspecified right bundle-branch block; Z95.5 Presence of coronary angioplasty implant and graft; I25.10 Atherosclerotic heart disease of native coronary artery without angina pectoris; G47.00 Insomnia, unspecified; Z79.02 Long term (current) use of antithrombotics/antiplatelets; I51.7 Cardiomegaly